=== PATIENT | male | born 1960 | race Two or more races ===

== ENCOUNTER 2023-02-16 06:06 | Day surgery (SDC) | payer OTHER ==
[~2023-02-16] VITALS: Ht 170.2 cm; Wt 90.7 kg
== END 2023-02-16 16:15 | disposition home or self-care (01) ==
LOC: CIR.AMB 06:06
PROVIDERS: ATTEND Orthopaedic Surgery Hand Surgery
DX: M19.032 Primary osteoarthritis, left wrist (principal); Z20.822 Contact with and (suspected) exposure to COVID-19
CPT/HCPCS: 25825; L8699